=== PATIENT | female | born 1970 | race Asian ===

== ENCOUNTER → 2016-08-19 | Outpatient (CLI) | payer MEDICAID, OTHER ==
--- NOTE | 2016-08-19 09:19 | REP ---
Clinical: COPD . Comparison: 06/11/2016 . Technique: PA and lateral. Findings: The mediastinum and cardiac silhouette are normal. The lung cedillo demonstrate chronic stable changes and without acute consolidation, effusion, or pneumothorax. The skeletal structures are intact and normal. Impression: 1. No acute cardiopulmonary process. Signed by Robi Spring MD 08/19/2016 09:10 A
== END ==
LOC: M WUC 08:41
PROVIDERS: ATTEND Physician Assistant Medical
DX: J44.9 Chronic obstructive pulmonary disease, unspecified (principal)

== ENCOUNTER → 2016-08-29 | Outpatient (CLI) | payer MEDICAID, OTHER ==
--- NOTE | 2016-08-29 21:57 | ECHO ---
DATE OF PROCEDURE: 08/29/2016 REFERRING PHYSICIAN: JULIUS Stark PATIENT LOCATION: Outpatient REASON FOR ECHOCARDIOGRAM: Pericardial effusion. 2D MEASUREMENTS: IVS: 0.86 cm LV: 4.4 cm LVPW: 0.88 cm LA: 3.0 cm Aorta: 2.9 cm IVC: 2.13 cm DOPPLER MEASUREMENTS: Peak velocity across the aortic valve: 0.99 m/s Peak velocity across the LVOT: 0.76 m/s Mitral E: 0.65, Mitral A: 0.47, with a ratio of 1.4 2D COMMENTS: 1. Technically mildly limited study due to poor acoustic window. 2. The left ventricular size is normal as well as the left ventricular wall thickness and systolic function. The estimated global left ventricular systolic ejection fraction is 60% to 65%. 2. Normal left atrium. Normal right atrium and right ventricle. 3. The atrial septum appeared to be normal without evidence of defect or shunt. 4. Normal aortic root. 5. No pericardial effusion seen. 6. The aortic valve, mitral valve, tricuspid valve and pulmonic valve appear to be normal. The proximal pulmonary artery branches were not well visualized. 7. The inferior vena cava was mildly enlarged, central venous pressure might be elevated. DOPPLER: No significant Doppler abnormalities detected but trace tricuspid regurgitation in limited views. The estimated pulmonary artery systolic pressure is probably normal. Assessment of the left ventricular diastolic function seems to be normal. IMPRESSION: 1. Normal global left ventricular systolic and diastolic function. 2. No pericardial effusion seen. 3. The study was technically mildly limited due to poor acoustic window.
== END ==
LOC: M CARPUL 10:24
PROVIDERS: ATTEND Physician Assistant Medical
DX: I31.3 Pericardial effusion (noninflammatory) (principal)

== ENCOUNTER → 2016-09-02 | Outpatient (REF) | payer OTHER | LOC: M SFHCLERA 15:54 | PROVIDERS: ATTEND Nurse Practitioner Family | DX: L02.214 Cutaneous abscess of groin (principal) ==

== ENCOUNTER 2016-12-09 13:52 | Emergency (ER) | payer OTHER ==
[~2016-12-09] VITALS: Ht 152.4 cm; Wt 59.0 kg
[2016-12-09 13:54] VITALS: BP 148/89
[2016-12-09] MEDS ORDERED: SILV-4 TOP (15:09)
[2016-12-09] MEDS ORDERED: BACT800T5 PO (15:09)
[2016-12-09] MEDS ORDERED: MOBI7.5T10 PO (15:10)
[2016-12-09] MEDS ORDERED: ZANA4TAB PO (15:10)
[2016-12-09] MEDS ORDERED: BACTRIM 160MG/800MG DS TAB PO ONE (15:15)
[2016-12-09] MEDS ORDERED: KETOROLAC 60 MG/2 ML VIAL (J1885) IM ONE (15:15)
[2016-12-09] MEDS ORDERED: SILVER SULFADIAZINE 1% CR 50 GM JAR TOP ONE (15:15)
[2016-12-09] MEDS ORDERED: PERCOCET 5MG/325MG TAB PO ONE (15:15)
[2016-12-09] MEDS ORDERED: ONDANSETRON 4 MG ORAL DISINTEGRATING TAB (S0181) PO ONE (16:30)
--- NOTE | 2016-12-09 17:04 | REP ---
RIGHT RIBS UNILATERAL: REASON: Pain after trauma. Four view of the right ribs were obtained without an accompanying frontal view of the chest. There is no fracture or destructive osseous lesions. ABDOMINAL SERIES: FINDINGS: Supine and upright views of the abdomen show the intestinal gas pattern to be nonspecific. Gas and stool is seen throughout the colon within the rectosigmoid region. The organ silhouettes insofar as delineated appear unremarkable. No abdominal calcific densities are seen within the abdomen or pelvis. The accompanying single frontal view of the chest shows no free subdiaphragmatic air, cardiomegaly, infiltrates or effusions. IMPRESSION: Nonspecific intestinal gas pattern. Signed by Jose Bahena DO 12/10/2016 09:55 A
== END 2016-12-09 16:59 | disposition home or self-care (01) ==
LOC: M ED 15:39
DX: T23.272A Burn of second degree of left wrist, initial encounter (principal); T31.0 Burns involving less than 10% of body surface; V43.52XA Car driver injured in collision with other type car in traffic accident, initial encounter; Y92.410 Unspecified street and highway as the place of occurrence of the external cause; Y93.9 Activity, unspecified; Y99.9 Unspecified external cause status; R07.89 Other chest pain; F17.200 Nicotine dependence, unspecified, uncomplicated; M54.2 Cervicalgia
CPT/HCPCS: 71100; 74022; 96372; 99281; J1885

== ENCOUNTER → 2016-12-13 | Outpatient (REF) | payer OTHER ==
[~2016-12-13] MED LIST: BACT800T5 PO; MOBI7.5T10 PO; SILV-4 TOP; TRAM50TA2 PO; ZANA4TAB PO
[2016-12-13 14:01] LABS: BASO % 0.3 % (0.0-1.0); EOS % 0.4 % (0.0-3.0); LARGE UNSTAINED CELL # 0.1 K/mm3 (0.0-0.4); LARGE UNSTAINED CELL % 1.2 % (0.0-4.0); LYMPH # 1.5 K/mm3 (1.5-4.5); LYMPH % 22.1 % (24.0-44.0); MEAN CORPUSCULAR HEMOGLOBIN 31.3 pg (27.0-33.0); MEAN CORPUSCULAR HGB CONC 32.8 g/dl (32.0-36.5); MEAN CORPUSCULAR VOLUME 95.4 fl (80.0-96.0); MONO # 0.2 K/mm3 (0.0-0.8); MONO % 3.5 % (0.0-5.0); NEUTROPHILS # 4.8 K/mm3 (1.8-7.7); NEUTROPHILS % 72.5 % (36.0-66.0); PLATELET COUNT, AUTOMATED 298 k/mm3 (150-450); RED CELL DISTRIBUTION WIDTH 12.9 % (11.5-14.5); WHITE BLOOD COUNT 6.6 K/mm3 (4.0-10.0)
[2016-12-13 14:40] LABS: ALBUMIN 4.1 GM/DL (3.2-5.2); ALBUMIN/GLOBULIN RATIO 1.37 (1.00-1.93); ALKALINE PHOSPHATASE 76 U/L (45-117); ALT/SGPT 16 U/L (12-78); ANION GAP 6 MEQ/L (8-16); AST/SGOT 6 U/L (15-37); BILIRUBIN,TOTAL 0.4 MG/DL (0.2-1.0); BLOOD UREA NITROGEN 8 MG/DL (7-18); CALCIUM LEVEL 8.4 MG/DL (8.5-10.1); CARBON DIOXIDE LEVEL 25 MEQ/L (21-32); CHLORIDE LEVEL 108 MEQ/L (98-107); CREATININE FOR GFR 0.91 MG/DL (0.55-1.02); GLOMERULAR FILTRATION RATE > 60.0 (>58); GLUCOSE, FASTING 105 MG/DL (70-105); SODIUM LEVEL 139 MEQ/L (136-145); TOTAL PROTEIN 7.1 GM/DL (6.4-8.2)
== END ==
LOC: M SFHCPLAZ 11:36
PROVIDERS: ATTEND Nurse Practitioner Family
DX: R10.11 Right upper quadrant pain (principal); T23.272D Burn of second degree of left wrist, subsequent encounter; R50.9 Fever, unspecified; X58.XXXA Exposure to other specified factors, initial encounter; Y92.9 Unspecified place or not applicable

== ENCOUNTER 2016-12-17 20:10 | Emergency (ER) | payer OTHER ==
[~2016-12-17] VITALS: Ht 152.4 cm; Wt 59.0 kg
[~2016-12-17 20:10] MED LIST changes: -TRAM50TA2 PO
[2016-12-17 20:11] VITALS: BP 121/84
[2016-12-17] MEDS ORDERED: TRAM50TA2 PO (20:30)
[2016-12-19] MEDS ORDERED: COLA100C3 PO (19:42)
== END 2016-12-18 02:43 | disposition home or self-care (01) ==
LOC: M ED 21:44
DX: M25.532 Pain in left wrist (principal); Z79.899 Other long term (current) drug therapy

== ENCOUNTER 2016-12-19 19:31 | Emergency (ER) | payer OTHER ==
[~2016-12-19] VITALS: Ht 152.4 cm; Wt 59.0 kg
[2016-12-19 19:31] VITALS: BP 148/90
[~2016-12-19 19:31] MED LIST changes: +TRAM50TA2 PO
[2016-12-19] MEDS ORDERED: COLA100C3 PO (19:42)
[2016-12-19 21:15] LABS: CONTROL LINE UCG INT CTR LINE PRESENT
[2016-12-19] MEDS ORDERED: KETOROLAC 30 MG/ML VIAL (J1885) IV ONE (21:30)
[2016-12-19 21:59] LABS: BASO % 0.5 % (0.0-1.0); EOS # 0.1 K/mm3 (0.0-0.50); EOS % 1.1 % (0.0-3.0); LARGE UNSTAINED CELL # 0.1 K/mm3 (0.0-0.4); LARGE UNSTAINED CELL % 1.5 % (0.0-4.0); LYMPH # 2.1 K/mm3 (1.5-4.5); LYMPH % 31.6 % (24.0-44.0); MEAN CORPUSCULAR VOLUME 93.7 fl (80.0-96.0); MONO # 0.3 K/mm3 (0.0-0.8); MONO % 4.6 % (0.0-5.0); NEUTROPHILS # 4.1 K/mm3 (1.8-7.7); NEUTROPHILS % 60.8 % (36.0-66.0); PLATELET COUNT, AUTOMATED 300 k/mm3 (150-450); RED CELL DISTRIBUTION WIDTH 12.5 % (11.5-14.5); WHITE BLOOD COUNT 6.7 K/mm3 (4.0-10.0)
[2016-12-19 22:27] LABS: ANION GAP 9 MEQ/L (8-16); BLOOD UREA NITROGEN 11 MG/DL (7-18); CALCIUM LEVEL 8.5 MG/DL (8.5-10.1); CARBON DIOXIDE LEVEL 24 MEQ/L (21-32); CHLORIDE LEVEL 107 MEQ/L (98-107); CREATININE FOR GFR 0.88 MG/DL (0.55-1.02); GLOMERULAR FILTRATION RATE > 60.0 (>58); GLUCOSE, FASTING 89 MG/DL (70-105); POTASSIUM SERUM 3.8 MEQ/L (3.5-5.1); SODIUM LEVEL 140 MEQ/L (136-145)
[2016-12-19] MEDS ORDERED: ISOVUE-370 76% 100ML VIAL (Q9967) As Ordered ONE (22:46)
--- NOTE | 2016-12-19 23:20 | REPUSA ---
CT of the abdomen and pelvis with contrast Clinical statement: Pain. Technique: Multiple axial CT images were obtained from the base of the lungs through the floor of the pelvis utilizing 5 mm axial slices after administration of nonionic intravenous contrast. Coronal an d sagittal reconstructions were also obtained. Comparison: None. Findings: Chest: The visualized lung bases are clear. Abdomen: The liver, spleen, pancreas, kidneys, gallbladder, and adrenal glands are unremarkable. The aorta is within normal limits. There is no evidence of abdominal lymphadenopathy or ascites. Pelvis: The bowel is unremarkable, with no obstructive or inflammatory changes. The urinary bladder i s within normal limits. Multiple small follicles are seen in the right ovary, the largest measuring 1 .5 x 1.3 cm. The other pelvic structures appear grossly intact. There is no evidence of pelvic lympha denopathy or ascites. Bones: There are no suspicious osseous abnormalities seen. Impression: Unremarkable CT examination of the abdomen and pelvis.
== END 2016-12-19 23:57 | disposition home or self-care (01) ==
LOC: M ED 21:20
DX: R31.9 Hematuria, unspecified (principal); R10.31 Right lower quadrant pain; V43.52XD Car driver injured in collision with other type car in traffic accident, subsequent encounter; Y92.410 Unspecified street and highway as the place of occurrence of the external cause; Y93.89 Activity, other specified; Y99.9 Unspecified external cause status; F17.200 Nicotine dependence, unspecified, uncomplicated; Z79.899 Other long term (current) drug therapy
CPT/HCPCS: 36415; 74177; 80048; 84703; 85025; 86140; 87086; 96374; 99283; J1885; Q9967

== ENCOUNTER 2016-12-25 11:12 | Outpatient (RCR) | payer OTHER ==
[~2016-12-25 11:12] MED LIST changes: +COLA100C3 PO
== END 2017-01-02 ==
LOC: M PT 11:12
PROVIDERS: ATTEND Nurse Practitioner Family
DX: R07.81 Pleurodynia (principal); M94.0 Chondrocostal junction syndrome [Tietze]; V89.2XXD Person injured in unspecified motor-vehicle accident, traffic, subsequent encounter; M54.5 Low back pain

== ENCOUNTER → 2016-12-28 | Outpatient (CLI) | payer OTHER ==
--- NOTE | 2016-12-28 10:48 | REP ---
Clinical: Pain. Technique: Neutral and frog lateral views of the right hip. Findings: Mild age-related changes are appreciated without significant, overt osteoarthritic findings. Specifically, the joint space appears relatively normal for age and there is no significant spurring or osteophyte formation along the acetabulum. Proximal femur appears intact and normal. Surrounding soft tissues are unremarkable. No significant enthesopathy along the pelvic contour. Impression: Essentially age-appropriate right hip radiographs. Signed by Robi Spring MD 12/28/2016 10:40 A
--- NOTE | 2016-12-28 10:49 | REP ---
Clinical: Right hip pain. Technique: Neutral and frog lateral views of the femur in conjunction with right hip series. Findings: Femur is intact and normal. No acute fracture dislocation. Surrounding soft tissues are unremarkable. Hip and knee joints appear normal for age. Impression: Normal right femur radiographs. Signed by Robi Spring MD 12/28/2016 10:41 A
== END ==
LOC: M RAD 10:23
PROVIDERS: ATTEND Nurse Practitioner Family
DX: M25.551 Pain in right hip (principal)

== ENCOUNTER → 2017-01-14 | Outpatient (CLI) | payer OTHER ==
--- NOTE | 2017-01-14 13:12 | REP ---
MR LUMBAR SPINE WITHOUT AND WITH CONTRAST: HISTORY: Back pain. COMPARISON: 04/17/2016. Decreased signal intensity on T2-weighted images is present in the L3-4 through L5-S1 intervertebral discs. The discs are decreased in height. These findings are consistent with disc degeneration. There is no disc bugle or herniation at the L1-2 and L2-3 levels. The nerves exit the neural foramina without compression. A diffuse disc bulge is present at the L3-4 level. There is minimal compression of the thecal sac. There is hypertrophy of the posterior articulating facets. The L3 nerves exit the neural foramina without compression. A diffuse disc bulge and small central disc protrusion are present at the L4-5 level. There is hypertrophy of the ligamenta flava and posterior articulating facets. These findings produce mild central canal stenosis. The L4 nerves exit the neural foramina without compression. A diffuse disc bulge and large central disc extrusion at present at the L5-S1 level. There is mild compression of the thecal sac and S1 nerves greater on the left than on the right as they exit the thecal sac. There is hypertrophy of the posterior articulating facets. There is compression of the L5 nerves in the neural foramina. A left laminectomy defect is present. A small amount of enhancing scar tissue is present in the left lateral aspect of the spinal canal and at the laminectomy site. The scar tissue involves the left S1 nerve. The conus medullaris is normal in appearance terminating at the level of the L1-2 intervertebral disc. Normal signal intensity is present in the lumbar vertebral bodies. IMPRESSION: 1. Diffuse disc bugle at the L3-4 level with minimal thecal sac compression. 2. Mild central canal stenosis at the L4-5 level secondary to disc bulge, disc protrusion, ligamentous, and facet hypertrophy. The disc protrusion is a new finding. 3. Diffuse disc bulge and large central disc extrusion at the L5-S1 level with mild compression of the thecal sac and S1 nerves greater on the left than on the right as they exit the thecal sac. There is compression of the L5 nerves in the neural foramina. A left laminectomy defect is present. Scar tissue involves the left S1 nerve. There is no other significant change. Signed by Holger Kidd MD 01/14/2017 01:31 P
== END ==
LOC: M RAD 10:40
PROVIDERS: ATTEND Nurse Practitioner Family
DX: M51.26 Other intervertebral disc displacement, lumbar region (principal)

== ENCOUNTER 2017-01-31 11:11 | Outpatient (RCR) | payer OTHER ==
[~2017-01-31 11:11] MED LIST changes: -COLA100C3 PO; +COLA100C5 PO; +MOBI4TAB PO; -MOBI7.5T10 PO
== END 2017-02-01 | disposition home or self-care (01) ==
LOC: M PT 11:11
PROVIDERS: ATTEND Nurse Practitioner Family
DX: R07.81 Pleurodynia (principal); M94.0 Chondrocostal junction syndrome [Tietze]; M54.5 Low back pain

== ENCOUNTER 2017-07-02 15:00 | Outpatient (RCR) | payer OTHER | END 2017-07-04 | LOC: M PT 15:00 | PROVIDERS: ATTEND Nurse Practitioner Family | DX: M54.2 Cervicalgia (principal); M25.571 Pain in right ankle and joints of right foot; M25.511 Pain in right shoulder ==

== ENCOUNTER 2017-07-05 15:13 | Outpatient (RCR) | payer OTHER | END 2017-08-04 | LOC: M PT 07-09 14:56 | DX: M54.2 Cervicalgia (principal); M25.571 Pain in right ankle and joints of right foot; M25.511 Pain in right shoulder | CPT/HCPCS: 97010 ==

== ENCOUNTER 2017-08-20 14:12 | Outpatient (RCR) | payer OTHER | END 2017-09-04 | LOC: M PT 14:12 | DX: M54.2 Cervicalgia (principal); M25.571 Pain in right ankle and joints of right foot; M25.511 Pain in right shoulder | CPT/HCPCS: 97110 ==

== ENCOUNTER → 2017-11-14 | Outpatient (REF) | payer OTHER ==
[2017-11-14 22:41] LABS: CHLAMYDIA DNA AMPLIFICATION NEGATIVE (NEGATIVE); GC DNA AMPLIFICATION NEGATIVE (NEGATIVE)
== END ==
LOC: M SFHCWAGY 17:11
DX: Z11.3 Encounter for screening for infections with a predominantly sexual mode of transmission (principal)

== ENCOUNTER → 2019-10-07 | Outpatient (CLI) | payer OTHER ==
--- NOTE | 2019-10-07 16:22 | REP ---
Digital diagnostic mammography with CAD, 3-D tomography, and focused right breast sonography: History: Sharp pain and tenderness behind the nipple in the right breast intermittently. Comparison mammography November 12, 2017, October 26, 2015, and May 13, 2014. Findings: Breast parenchyma is heterogeneously dense in a pattern which inhibits the sensitivity of mammography. Breast parenchyma is symmetrically distributed and there is no evidence of mass, architectural distortion, microcalcification, or worrisome skin change. No mammographic suspicious finding. Sonographic findings: Retroareolar region of the right breast is scanned. Heterogeneous fibroglandular background echotexture is observed. There is a hypoechoic oval shaped 6 x 7 x 3 mm nodule at the 2 o'clock position 4 cm from the nipple. This does not meet the criteria of a simple cyst. Its long axis is parallel to the skin. There is a well defined back wall. Impression: There is a 6 mm oval-shaped hypoechoic lesion at 2 o'clock position in the right breast on ultrasound 4 cm from the nipple. BIRADS category 4 suspicious breast imaging findings. Ultrasound guided cyst aspiration versus needle biopsy recommended with marker clip placement. BIRADS 4: BI-RADS/ACR category 4 mammogram. Suspicious Abnormality - biopsy should be considered. This mammogram was interpreted with the aid of an FDA-approved computer-aided detection system. The patient states she had a clinical breast exam in August 2019. The patient letter being requested is m#4 dense. This patient's estimated Tyrer-Cuzick lifetime risk assessment for the breast cancer is 11.7 %.
== END ==
LOC: M WHC 12:00
PROVIDERS: ATTEND Nurse Practitioner Women's Health
DX: Z12.31 Encounter for screening mammogram for malignant neoplasm of breast (principal)
CPT/HCPCS: 76642; 77066; G0279

== ENCOUNTER → 2020-04-21 | Outpatient (CLI) | payer OTHER ==
[2020-04-21 14:50] LABS: BLOOD UREA NITROGEN 7 MG/DL (7-18); CREATININE FOR GFR 0.72 MG/DL (0.55-1.30); GLOMERULAR FILTRATION RATE > 60.0 (>58)
== END ==
LOC: M PLALAB 10:50
PROVIDERS: ATTEND Nurse Practitioner Family
DX: M54.16 Radiculopathy, lumbar region (principal)

== ENCOUNTER → 2020-05-24 | Outpatient (CLI) | payer OTHER ==
--- NOTE | 2020-05-24 11:59 | REP ---
INDICATION: N63.10 RT BREAST 2:00 4 CFN BENIGN BX WITH FIBROMATOUS,F/U. COMPARISON: 11/06/2019 and 10/07/2019. TECHNIQUE: Real-time sonographic evaluation of right breast performed in the region of 2 o'clock, approximately 4 cm from the nipple.. FINDINGS: At this location there is once again an oval hypoechoic nodule, unchanged since the prior studies, measuring approximately 6 x 2 x 7 mm. The patient underwent ultrasound-guided biopsy 11/06/2019, and the biopsy clip is seen just lateral to the nodule. IMPRESSION: BIRADS/ACR category 2 benign. Stable oval hypoechoic nodule right breast 2 o'clock, status post benign ultrasound-guided biopsy. RECOMMENDATION: Routine follow-up. <Electronically signed by Rob Boone > 05/24/20 [id number]
== END ==
LOC: M PLAIMG 10:35
PROVIDERS: ATTEND Surgery
DX: N63.10 Unspecified lump in the right breast, unspecified quadrant (principal)

== ENCOUNTER → 2020-06-13 | Outpatient (CLI) | payer OTHER ==
[2020-06-13 14:10] LABS: HEMATOCRIT 42.6 % (36.0-47.0); HEMOGLOBIN 13.5 g/dl (12.0-15.5); MEAN CORPUSCULAR HEMOGLOBIN 30.4 pg (27.0-33.0); MEAN CORPUSCULAR HGB CONC 31.7 g/dl (32.0-36.5); MEAN CORPUSCULAR VOLUME 95.9 fl (80.0-96.0); PLATELET COUNT, AUTOMATED 362 10^3/uL (150-450); RED BLOOD COUNT 4.44 10^6/uL (4.00-5.40); WHITE BLOOD COUNT 8.6 10^3/uL (4.0-10.0)
[2020-06-13 15:12] LABS: ALBUMIN 4.3 GM/DL (3.2-5.2); ALT/SGPT 20 U/L (12-78); BILIRUBIN,TOTAL 1.4 MG/DL (0.2-1.0); BLOOD UREA NITROGEN 11 MG/DL (7-18); CALCIUM LEVEL 9.3 MG/DL (8.5-10.1); CARBON DIOXIDE LEVEL 25 MEQ/L (21-32); CHLORIDE LEVEL 107 MEQ/L (98-107); CHOLESTEROL LEVEL 198 MG/DL (<200); CHOLESTEROL RISK RATIO 2.955 (<5); CREATININE FOR GFR 0.77 MG/DL (0.55-1.30); GLOMERULAR FILTRATION RATE > 60.0 (>58); GLUCOSE, FASTING 103 MG/DL (70-100); HDL CHOLESTEROL 67 MG/DL (>40); LDL CHOLESTEROL 116 MG/DL (<100); NON-HDL-C 131 MG/DL; SODIUM LEVEL 139 MEQ/L (136-145); TOTAL 25(OH) VITAMIN D 18.7 NG/ML (30.0-100.0); TOTAL PROTEIN 7.3 GM/DL (6.4-8.2); TRIGLYCERIDES LEVEL 76 MG/DL (<150)
== END ==
LOC: M WUC 11:15
PROVIDERS: ATTEND Family Medicine
DX: J44.9 Chronic obstructive pulmonary disease, unspecified (principal); Z13.220 Encounter for screening for lipoid disorders; F41.9 Anxiety disorder, unspecified; E55.9 Vitamin D deficiency, unspecified; J30.9 Allergic rhinitis, unspecified

== ENCOUNTER → 2020-09-09 | Outpatient (REF) | payer OTHER ==
[2020-09-09 15:49] LABS: HEMOGLOBIN A1c 5.2 %
[2020-09-09 16:05] LABS: ALT/SGPT 14 U/L (12-78); BILIRUBIN,TOTAL 1.3 MG/DL (0.2-1.0); BLOOD UREA NITROGEN 11 MG/DL (7-18); CALCIUM LEVEL 9.2 MG/DL (8.5-10.1); CARBON DIOXIDE LEVEL 26 MEQ/L (21-32); CHLORIDE LEVEL 108 MEQ/L (98-107); CREATININE FOR GFR 0.78 MG/DL (0.55-1.30); GLOMERULAR FILTRATION RATE > 60.0 (>58); GLUCOSE, FASTING 93 MG/DL (70-100); SODIUM LEVEL 139 MEQ/L (136-145); TOTAL PROTEIN 6.8 GM/DL (6.4-8.2)
[2020-09-09 16:16] LABS: TOTAL 25(OH) VITAMIN D 45.4 NG/ML (30.0-100.0)
[2020-09-09 17:29] LABS: CHLAMYDIA DNA AMPLIFICATION NEGATIVE (NEGATIVE); GC DNA AMPLIFICATION NEGATIVE (NEGATIVE)
[2020-09-09 19:57] LABS: HEPATITIS A ANTIBODY IGM NEGATIVE (NEGATIVE); HEPATITIS B CORE ANTIBODY IGM NEGATIVE (NEGATIVE); HEPATITIS B SURFACE ANTIGEN NEGATIVE (NEGATIVE); HEPATITIS C VIRUS ABY INDEX < 0.0 INDEX (<0.8); HIV 1&2 SCREEN CENTAUR NEGATIVE (NEGATIVE)
== END ==
LOC: M PLALAB 12:31
PROVIDERS: ATTEND Nurse Practitioner Women's Health
DX: Z11.3 Encounter for screening for infections with a predominantly sexual mode of transmission (principal); Z12.4 Encounter for screening for malignant neoplasm of cervix; Z01.419 Encounter for gynecological examination (general) (routine) without abnormal findings

== ENCOUNTER → 2020-10-03 | Outpatient (CLI) | payer OTHER ==
[2020-10-03 19:10] LABS: HEMATOCRIT 38.9 % (36.0-47.0); HEMOGLOBIN 12.2 g/dl (12.0-15.5); MEAN CORPUSCULAR HEMOGLOBIN 30.1 pg (27.0-33.0); MEAN CORPUSCULAR HGB CONC 31.4 g/dl (32.0-36.5); PLATELET COUNT, AUTOMATED 290 10^3/uL (150-450); RED BLOOD COUNT 4.05 10^6/uL (4.00-5.40); WHITE BLOOD COUNT 5.7 10^3/uL (4.0-10.0)
[2020-10-03 20:13] LABS: BILIRUBIN,DIRECT 0.2 MG/DL (0.0-0.2); BILIRUBIN,TOTAL 0.9 MG/DL (0.2-1.0); FOLATE 8.8 NG/ML; PERCENT SATURATION 32.5 % (13.2-45.0); TOTAL PROTEIN 6.7 GM/DL (6.4-8.2)
[2020-10-05 08:09] LABS: CERULOPLASMIN 20.3 mg/dL (19.0-39.0)
== END ==
LOC: M WUC 12:50
PROVIDERS: ATTEND Family Medicine
DX: E80.6 Other disorders of bilirubin metabolism (principal)

== ENCOUNTER → 2020-10-06 | Outpatient (CLI) | payer OTHER ==
--- NOTE | 2020-10-06 14:27 | REPMRS ---
Patient History The patient states she has not had a clinical breast exam in over a year. No known family history of cancer. Benign US guided breast biopsy. of the right breast, November 06, 2019. Benign excisional biopsy of the right breast, December 1991. 3D TOMOSYNTHESIS WAS PERFORMED. [facility]%. Volpara breast density c. Digital Woman Screen Mammo: October 06, 2020 - Exam #: [id number] Bilateral CC and MLO view(s) were taken. Technologist: Saige Thomason, Technologist Prior study comparison: October 07, 2019, diagnostic bilateral mammo performed at [facility]. November 12, 2017, digital woman screen mammo performed at [facility]. FINDINGS: The breast tissue is heterogeneously dense. This may lower the sensitivity of mammography. There has been no change in the appearance of the mammogram from the prior studies. There is a moderate amount of residual fibroglandular tissue which is fairly symmetric. There is no interval development of dominant mass, areas of architectural distortion, or clustered microcalcification typical of malignancy. Assessment: BI-RADS/ACR category 1 mammogram. Negative Mammogram. Recommendation Routine screening mammogram in 1 year (for women over age 40). This mammogram was interpreted with the aid of an FDA-approved computer-aided dectection system. Electronically Signed By: Rob Boone MD 10/06/20 [id number]
== END ==
LOC: M WHC 13:32
PROVIDERS: ATTEND Nurse Practitioner Women's Health
DX: Z12.31 Encounter for screening mammogram for malignant neoplasm of breast (principal)

== ENCOUNTER → 2021-02-24 | Outpatient (CLI) | payer OTHER, SELFPAY | LOC: M LABSMTC 13:03 | PROVIDERS: ATTEND Pediatrics | DX: Z20.828 Contact with and (suspected) exposure to other viral communicable diseases (principal); Z11.59 Encounter for screening for other viral diseases ==

== ENCOUNTER → 2021-08-30 | Outpatient (CLI) | payer OTHER | LOC: M LABSMTC 11:26 | PROVIDERS: ATTEND Family Medicine | DX: Z20.822 Contact with and (suspected) exposure to COVID-19 (principal) ==

== ENCOUNTER → 2021-11-23 | Outpatient (CLI) | payer OTHER | LOC: M WHC 12:38 | PROVIDERS: ATTEND Advanced Practice Midwife | DX: Z12.31 Encounter for screening mammogram for malignant neoplasm of breast (principal); N92.0 Excessive and frequent menstruation with regular cycle ==

== ENCOUNTER → 2021-12-14 | Outpatient (REF) | payer OTHER | LOC: M SFHCWAGY 17:08 | PROVIDERS: ATTEND Advanced Practice Midwife | DX: N92.0 Excessive and frequent menstruation with regular cycle (principal) ==

== ENCOUNTER 2022-04-22 15:55 | Emergency (ER) | payer OTHER ==
[~2022-04-22] VITALS: Ht 152.4 cm; Wt 65.9 kg
[2022-04-22 15:56] VITALS: BP 155/96
== END 2022-04-22 17:27 | disposition home or self-care (01) ==
LOC: M ED 15:55
DX: T20.10XA Burn of first degree of head, face, and neck, unspecified site, initial encounter (principal); T21.11XA Burn of first degree of chest wall, initial encounter; X10.2XXA Contact with fats and cooking oils, initial encounter; F17.200 Nicotine dependence, unspecified, uncomplicated; F10.10 Alcohol abuse, uncomplicated; T31.0 Burns involving less than 10% of body surface; Y92.9 Unspecified place or not applicable; Y93.9 Activity, unspecified; Y99.9 Unspecified external cause status

== ENCOUNTER 2022-07-25 14:09 | Outpatient (RCR) | payer OTHER | END 2022-08-04 | LOC: M PT 14:09 | PROVIDERS: ATTEND Family Medicine | DX: M48.02 Spinal stenosis, cervical region (principal) ==

== ENCOUNTER → 2022-07-25 | Outpatient (CLI) | payer OTHER | LOC: M CARPUL 10:55 | PROVIDERS: ATTEND Family Medicine | DX: J44.9 Chronic obstructive pulmonary disease, unspecified (principal) ==

== ENCOUNTER 2022-08-31 11:25 | Outpatient (RCR) | payer OTHER | END 2022-09-04 | LOC: M PT 11:25 | PROVIDERS: ATTEND Family Medicine | DX: M48.02 Spinal stenosis, cervical region (principal) ==

== ENCOUNTER 2022-09-21 11:29 | Outpatient (RCR) | payer OTHER | END 2022-10-02 | LOC: M PT 11:29 | PROVIDERS: ATTEND Family Medicine | DX: M48.02 Spinal stenosis, cervical region (principal) ==

== ENCOUNTER 2022-11-16 14:37 | Emergency (ER) | payer OTHER ==
[~2022-11-16] VITALS: Ht 152.4 cm; Wt 59.1 kg
[2022-11-16] MEDS ORDERED: NAPR-849 (14:44)
[2022-11-16 15:45] LABS: BASO % 0.5 % (0.0-1.0); EOS % 0.4 % (0.0-3.0); HEMATOCRIT 39.1 % (36.0-47.0); HEMOGLOBIN 12.7 g/dl (12.0-15.5); LYMPH # 1.8 10^3/uL (1.5-5.0); LYMPH % 23.9 % (24.0-44.0); MEAN CORPUSCULAR HEMOGLOBIN 29.7 pg (27.0-33.0); MEAN CORPUSCULAR HGB CONC 32.5 g/dl (32.0-36.5); MEAN CORPUSCULAR VOLUME 91.6 fl (80.0-96.0); MONO # 0.4 10^3/uL (0.0-0.8); MONO % 5.1 % (2.0-8.0); NEUTROPHILS # 5.3 10^3/uL (1.5-8.5); NEUTROPHILS % 69.8 % (36.0-66.0); PLATELET COUNT, AUTOMATED 415 10^3/uL (150-450); RED BLOOD COUNT 4.27 10^6/uL (4.00-5.40); WHITE BLOOD COUNT 7.6 10^3/uL (4.0-10.0)
[2022-11-16 15:56] LABS: INR 0.91; PROTHROMBIN TIME 12.4 SECONDS (12.5-14.5)
[2022-11-16 16:04] LABS: CK-MB VALUE MASS < 1.0 NG/ML (<3.6)
[2022-11-16 16:06] LABS: LIPASE 36 U/L (12-53)
[2022-11-16 16:07] LABS: CPK CREATINE PHOSPHOKINASE 104 U/L (34-145); MB/CK RELATIVE INDEX 0.96 (< OR =4)
[2022-11-16 16:08] LABS: ALBUMIN 4.1 G/DL (3.2-5.2); ALKALINE PHOSPHATASE 87 U/L (46-116); ALT/SGPT 14 U/L (7.0-40); AST/SGOT 11 U/L (<34); BILIRUBIN,DIRECT 0.3 MG/DL (<0.4); BILIRUBIN,TOTAL 0.8 MG/DL (0.3-1.2); BLOOD UREA NITROGEN 10 MG/DL (9-23); CALCIUM LEVEL 8.7 MG/DL (8.5-10.1); CARBON DIOXIDE LEVEL 22 MMOL/L (20-31); CHLORIDE LEVEL 109 MMOL/L (98-107); CREATININE FOR GFR 0.77 MG/DL (0.55-1.30); GLOMERULAR FILTRATION RATE > 60.0 (>51); GLUCOSE, FASTING 96 MG/DL (60-100); POTASSIUM SERUM 3.8 MMOL/L (3.5-5.1); SODIUM LEVEL 140 MMOL/L (136-145); THYROID STIMULATING HORMONE 1.979 uIU/ML (0.55-4.78); TOTAL PROTEIN 6.6 G/DL (5.7-8.2)
[2022-11-16 16:10] LABS: FREE T4 0.95 NG/DL (0.89-1.76)
[2022-11-16] MEDS ORDERED: KETOROLAC 30 MG/ML 1ML VIAL IV ONE (16:15)
[2022-11-16] MEDS ORDERED: ISOVUE-370 76% 100ML VIAL As Ordered ONE (16:22)
[2022-11-16] MEDS ORDERED: PERC5TAB12 PO (18:22)
[2022-11-16 18:26] VITALS: BP 144/94
== END 2022-11-16 18:46 | disposition home or self-care (01) ==
LOC: M ED 14:37
DX: R07.9 Chest pain, unspecified (principal); F17.200 Nicotine dependence, unspecified, uncomplicated; F12.10 Cannabis abuse, uncomplicated; F10.10 Alcohol abuse, uncomplicated; Z79.899 Other long term (current) drug therapy
CPT/HCPCS: 71046; 71275; 80047; 80048; 80076; 82550; 82553; 83690; 83880; 84439; 84443; 85025; 85610; 93005; 93041; 96374; 99284; J1885; Q9967

== ENCOUNTER → 2022-12-18 | Outpatient (CLI) | payer OTHER ==
[~2022-12-18] MED LIST changes: +NAPR-849; +PERC5TAB12 PO
== END ==
LOC: M RAD 12:38
PROVIDERS: ATTEND Family Medicine
DX: Z12.2 Encounter for screening for malignant neoplasm of respiratory organs (principal); F17.210 Nicotine dependence, cigarettes, uncomplicated

== ENCOUNTER → 2023-05-30 | Outpatient (CLI) | payer OTHER | LOC: M RAD 17:45 | PROVIDERS: ATTEND Student in an Organized Health Care Education/Training Program | DX: R07.81 Pleurodynia (principal) ==

== ENCOUNTER → 2023-10-04 | Outpatient (CLI) | payer OTHER | LOC: M PLAIMG 14:55 | PROVIDERS: ATTEND Student in an Organized Health Care Education/Training Program | DX: R07.89 Other chest pain (principal) ==

== ENCOUNTER → 2023-12-19 | Outpatient (CLI) | payer OTHER | LOC: M RAD 15:39 | PROVIDERS: ATTEND Family Medicine | DX: F17.210 Nicotine dependence, cigarettes, uncomplicated (principal) ==

== ENCOUNTER → 2024-02-20 | Outpatient (CLI) | payer OTHER | LOC: M RAD 16:33 | PROVIDERS: ATTEND Family Medicine | DX: Z12.2 Encounter for screening for malignant neoplasm of respiratory organs (principal); F17.210 Nicotine dependence, cigarettes, uncomplicated ==

== ENCOUNTER → 2024-03-13 | Outpatient (REF) | payer OTHER ==
[2024-03-13 18:37] LABS: APPEARANCE, URINE CLEAR (CLEAR); BACTERIA, URINE AUTO NEGATIVE (NEGATIVE); BILIRUBIN, URINE AUTO NEGATIVE (NEGATIVE); BLOOD, URINE BLOOD 1+ (NEGATIVE); COLOR, URINE YELLOW (YELLOW); GLUCOSE, URINE (UA) AUTO NEGATIVE (NEGATIVE); KETONE, URINE AUTO NEGATIVE (NEGATIVE); LEUKOCYTE ESTERASE, URINE AUTO NEGATIVE (NEGATIVE); NITRITE, URINE AUTO NEGATIVE (NEGATIVE); PROTEIN, URINE AUTO NEGATIVE (NEGATIVE); RBC, URINE AUTO 2 /HPF (0-3); SPECIFIC GRAVITY URINE AUTO 1.017 (1.002-1.035); SQUAMOUS EPITHELIAL CELL UR AU 1 /HPF (0-6); UROBILINOGEN, URINE AUTO 0.2 mg/dL (0.0-2.0); WBC, URINE AUTO 0 /HPF (0-3)
== END ==
LOC: M LAB REF 16:43
PROVIDERS: ATTEND Student in an Organized Health Care Education/Training Program
DX: R30.0 Dysuria (principal)

== ENCOUNTER → 2024-06-05 | Outpatient (CLI) | payer OTHER ==
[2024-06-05 11:16] LABS: HEMOGLOBIN A1c 5.4 % (4.0-6.0)
[2024-06-05 11:20] LABS: ALBUMIN 3.8 G/DL (3.2-5.2); ALKALINE PHOSPHATASE 73 U/L (35-104); ALT/SGPT 14 U/L (7.0-40); AST/SGOT < 8 U/L (<34); BILIRUBIN,TOTAL 0.9 MG/DL (0.3-1.2); BLOOD UREA NITROGEN 8 MG/DL (9-23); CALCIUM LEVEL 9.3 MG/DL (8.5-10.1); CARBON DIOXIDE LEVEL 24 MMOL/L (20-31); CHLORIDE LEVEL 114 MMOL/L (98-107); CHOLESTEROL LEVEL 176 MG/DL (<200); CHOLESTEROL RISK RATIO 2.77 (<5); CREATININE FOR GFR 0.72 MG/DL (0.55-1.30); GLOMERULAR FILTRATION RATE > 60.0 (>51); GLUCOSE, FASTING 98 MG/DL (60-100); HDL CHOLESTEROL 63.5 MG/DL (>40); LDL CHOLESTEROL 96.9 MG/DL (<100); NON-HDL-C 112.5 MG/DL; POTASSIUM SERUM 4.1 MMOL/L (3.5-5.1); SODIUM LEVEL 139 MMOL/L (136-145); TOTAL PROTEIN 6.5 G/DL (5.7-8.2); TRIGLYCERIDES LEVEL 78 MG/DL (<150)
[2024-06-05 11:21] LABS: THYROID STIMULATING HORMONE 3.427 uIU/ML (0.55-4.78)
[2024-06-05 11:22] LABS: TOTAL 25(OH) VITAMIN D 20.7 NG/ML (20.0-100.0)
== END ==
LOC: M LAB 10:18
PROVIDERS: ATTEND Family Medicine
DX: Z13.220 Encounter for screening for lipoid disorders (principal); Z13.1 Encounter for screening for diabetes mellitus; E55.9 Vitamin D deficiency, unspecified; Z13.29 Encounter for screening for other suspected endocrine disorder

== ENCOUNTER → 2024-07-07 | Outpatient (CLI) | payer OTHER | LOC: M WHC 10:19 | PROVIDERS: ATTEND Nurse Practitioner Family | DX: N64.4 Mastodynia (principal); R92.333 Mammographic heterogeneous density, bilateral breasts ==

== ENCOUNTER → 2024-07-24 | Outpatient (REF) | payer OTHER, MEDICAID | LOC: M SFHCPLAZ 17:19 | PROVIDERS: ATTEND Family Medicine | DX: D10.6 Benign neoplasm of nasopharynx (principal) ==

== ENCOUNTER → 2024-09-28 | Outpatient (REF) | payer OTHER, MEDICAID ==
[~2024-09-28] MED LIST changes: +VITA200016 PO
[2024-10-01 14:52] LABS: HPV APTIMA Not Detected (Not Detected)
== END ==
LOC: M SFHCWAGY 11:28
PROVIDERS: ATTEND Nurse Practitioner Family
DX: Z12.4 Encounter for screening for malignant neoplasm of cervix (principal)

== ENCOUNTER 2024-10-14 10:00 | Day surgery (SDC) | payer OTHER ==
[~2024-10-14] VITALS: Ht 152.4 cm; Wt 62.0 kg
[2024-10-14] MEDS ORDERED: propofoL 200 MG/20 ML VIAL As Ordered ONE (11:11)
[2024-10-14 11:25] VITALS: TEMP 97
[2024-10-14 11:43] VITALS: BP 110/83; O2SAT 100
== END 2024-10-14 11:44 | disposition home or self-care (01) ==
LOC: M OPP 10:00
PROVIDERS: ATTEND Surgery
DX: Z12.11 Encounter for screening for malignant neoplasm of colon (principal); Z12.12 Encounter for screening for malignant neoplasm of rectum; K64.0 First degree hemorrhoids; K58.9 Irritable bowel syndrome, unspecified; Z87.19 Personal history of other diseases of the digestive system; Z72.0 Tobacco use

== ENCOUNTER → 2024-11-26 | Outpatient (CLI) | payer OTHER | LOC: M PLAIMG 11:27 | DX: S60.042A Contusion of left ring finger without damage to nail, initial encounter (principal); M85.842 Other specified disorders of bone density and structure, left hand; Y92.9 Unspecified place or not applicable; Y93.9 Activity, unspecified; Y99.9 Unspecified external cause status; X58.XXXA Exposure to other specified factors, initial encounter ==

== ENCOUNTER → 2025-02-26 | Outpatient (REF) | payer OTHER ==
[~2025-02-26] MED LIST changes: +HOLTER MONITOR XX
== END ==
LOC: M SFHCPLAZ 15:10
DX: R39.9 Unspecified symptoms and signs involving the genitourinary system (principal)

== ENCOUNTER → 2025-03-16 | Outpatient (CLI) | payer OTHER ==
[2025-03-16 11:00] LABS: ALT/SGPT 18.0 U/L (7.0-40); AST/SGOT 16.0 U/L (<34); CALCIUM LEVEL 9.4 MG/DL (8.5-10.1); CARBON DIOXIDE LEVEL 29.0 MMOL/L (20-31); CHLORIDE LEVEL 107.0 MMOL/L (98-107); CHOLESTEROL LEVEL 226.0 MG/DL (<200); CHOLESTEROL RISK RATIO 3.21 (<5); CREATININE FOR GFR 0.82 MG/DL (0.55-1.30); GLOMERULAR FILTRATION RATE 86.0 (>51); LDL CHOLESTEROL 139.0 MG/DL (<100); NON-HDL-C 155.8 MG/DL; POTASSIUM SERUM 4.3 MMOL/L (3.5-5.1); SODIUM LEVEL 145.0 MMOL/L (136-145); TRIGLYCERIDES LEVEL 84.0 MG/DL (<150)
[2025-03-16 11:01] LABS: FREE T4 1.03 NG/DL (0.89-1.76)
== END ==
LOC: M LAB 09:54
PROVIDERS: ATTEND Internal Medicine Cardiovascular Disease
DX: E03.9 Hypothyroidism, unspecified (principal)

== ENCOUNTER → 2025-04-01 | Outpatient (CLI) | payer OTHER, MEDICAID | LOC: M SOG 07:26 | PROVIDERS: ATTEND Orthopaedic Surgery | DX: M25.531 Pain in right wrist (principal); M25.532 Pain in left wrist ==

== ENCOUNTER → 2025-04-22 | Outpatient (CLI) | payer OTHER | LOC: M CARPUL 11:22 | PROVIDERS: ATTEND Student in an Organized Health Care Education/Training Program | DX: R00.2 Palpitations (principal) ==

== ENCOUNTER 2025-05-13 14:46 | Outpatient (RCR) | payer OTHER | END 2025-06-04 | LOC: M PT 14:46 | PROVIDERS: ATTEND Orthopaedic Surgery | DX: M54.12 Radiculopathy, cervical region (principal) ==

== ENCOUNTER → 2025-07-15 | Outpatient (CLI) | payer OTHER ==
[~2025-07-15] MED LIST changes: +METHACHOLINE KIT (6 VIAL.NEB PREMIX) INH ONE
== END ==
LOC: M CARPUL 13:02
PROVIDERS: ATTEND Physician Assistant
DX: R06.00 Dyspnea, unspecified (principal)
CPT/HCPCS: 94070; 95070; J7674

== ENCOUNTER → 2025-07-19 | Outpatient (CLI) | payer OTHER ==
[~2025-07-19] MED LIST changes: -METHACHOLINE KIT (6 VIAL.NEB PREMIX) INH ONE
== END ==
LOC: M PLAIMG 12:44
DX: M25.551 Pain in right hip (principal); M25.512 Pain in left shoulder; M79.672 Pain in left foot